=== PATIENT | female | born 1965 | race American Indian/Alaskan Native ===

== ENCOUNTER 2018-11-07 12:26 | Emergency (ER) | payer OTHER, SELFPAY ==
--- NOTE | 2018-11-07 12:56 | Emergency Department Report ---
Chief Complaint: Dizziness Stated Complaint: EPISODES VERTIGO/VOMIT Time Seen by Provider: 11/07/18 12:53 - HPI History of Present Illness: This is a 53 y.o. F that presents to the ER with vertigo and vomiting since 1000. PMH: Vertigo, HTN, migraine, seizures, and CVA Patient took meclizine [employer], symptoms worse. - Exam Vital Signs: Vital Signs 11/07/18 12:54 Temperature 98.7 F Pulse Rate 85 Respiratory 16 Rate Blood Pressure 125/80 [Right] O2 Sat by Pulse 100 Oximetry MSE screening note: Focused history and physical exam performed. Due to findings the following was ordered: Given zofran odt 4 mg po ED Disposition for MSE Condition: Stable
[2018-11-07] MEDS ORDERED: ZOFRAN ODT PO ONE ×2 (12:57→14:06)
[2018-11-07] MEDS ORDERED: ZOFRAN ODT ONE (12:59)
[2018-11-07] MEDS ORDERED: BENADRYL PO ONE (14:06)
[2018-11-07] MEDS ORDERED: ANTIVERT PO ONE (14:06)
--- NOTE | 2018-11-07 15:27 | Emergency Department Report ---
ED Dizziness HPI - General Chief Complaint: Dizziness Stated Complaint: EPISODES VERTIGO/VOMIT Time Seen by Provider: 11/07/18 12:53 Source: family Mode of arrival: Wheelchair Limitations: No Limitations - History of Present Illness Initial Comments: This is a 53-year-old female with a history of vertigo who presents to ED complaining of dizziness episode that started today with some nausea. Patient states that she's been under a lot of stress lately is doing with her 2 grandchildren and has not had some rest. Patient thinks this is what may have triggered her vertigo. Patient states that also she had an episode was about 2 years ago. Patient states she had a meclizine tablet at home that she used with no relief. Patient denies headache, trauma or any other injuries. MD Complaint: dizziness - Related Data Home Medications Medication Instructions Recorded Confirmed Last Taken hydroCHLOROthiazide [HCTZ] 25 mg PO QDAY 04/11/14 04/11/14 04/02/14 Previous Rx's Medication Instructions Recorded Last Taken Type Meclizine [Antivert] 25 mg PO Q8H PRN #30 tablet 11/07/18 Unknown Rx Ondansetron [Zofran ODT TAB] 4 mg PO Q6H PRN #30 tab.rapdis 11/07/18 Unknown Rx Allergies Allergy/AdvReac Type Severity Reaction Status Date / Time No Known Allergies Allergy Verified 11/07/18 12:28 ED Review of Systems ROS: Stated complaint: EPISODES VERTIGO/VOMIT Other details as noted in HPI Comment: All other systems reviewed and negative ED Past Medical Hx - Past Medical History Hx Hypertension: Yes Hx Congestive Heart Failure: No Hx Diabetes: No Hx Seizures: Yes Hx Asthma: No Hx COPD: No Additional medical history: VERTIGO - Surgical History Additional Surgical History: hysterectomy. Tonsillectomy. Ectopic surgery - Social History Smoking Status: Never Smoker Substance Use Type: None - Medications Home Medications: Home Medications Medication Instructions Recorded Confirmed Last Taken Type hydroCHLOROthiazide [HCTZ] 25 mg PO QDAY 04/11/14 04/11/14 04/02/14 History Meclizine [Antivert] 25 mg PO Q8H PRN #30 tablet 11/07/18 Unknown Rx Ondansetron [Zofran ODT TAB] 4 mg PO Q6H PRN #30 tab.rapdis 11/07/18 Unknown Rx ED Physical Exam - General Limitations: No Limitations General appearance: alert, in no apparent distress - Head Head exam: Present: atraumatic, normocephalic - Eye Eye exam: Present: normal appearance - ENT ENT exam: Present: mucous membranes moist - Neck Neck exam: Present: normal inspection - Respiratory Respiratory exam: Present: normal lung sounds bilaterally. Absent: respiratory distress - Cardiovascular Cardiovascular Exam: Present: regular rate, normal rhythm. Absent: systolic murmur, diastolic murmur, rubs, gallop - GI/Abdominal GI/Abdominal exam: Present: soft, normal bowel sounds - Extremities Exam Extremities exam: Present: normal inspection - Back Exam Back exam: Present: normal inspection - Neurological Exam Neurological exam: Present: alert, oriented X3, CN II-XII intact, normal gait - Expanded Neurological Exam Expanded Patient oriented to: Present: person, place, time Speech: Present: fluid speech Cranial nerves: Facial Sensation: Normal Cerebellar function: Finger to Nose: Normal Motor strength exam: RUE: 5, LUE: 5, RLE: 5, LLE: 5 Best Eye Response ([place]): (4) open spontaneously Best Motor Response ([place]): (6) obeys commands Best Verbal Response ([place]): (5) oriented [place] Total: 15 - Psychiatric Psychiatric exam: Present: normal affect, normal mood - Skin Skin exam: Present: warm, dry, intact, normal color. Absent: rash ED Course Vital Signs 11/07/18 12:54 Temperature 98.7 F Pulse Rate 85 Respiratory 16 Rate Blood Pressure 125/80 [Right] O2 Sat by Pulse 100 Oximetry - Reevaluation(s) Reevaluation #1: Hightower is sitting in a wheelchair constantly. She states she feels better. Patient has no neurological deficit. He is speaking in clear sentences. 11/07/18 15:29 ED Medical Decision Making - Medical Decision Making 53-year-old female presents with an onset episode of vertigo Patient received Zofran and meclizine in the ED today. Patient reports to feeling much better upon reevaluation. Discussed the patient to go home and rest and take it easy for the rest of the day. Discussedradius activities for due to. Discussed important and increase hydration Discussed follow-up with primary care physician. Critical care attestation.: If time is entered above; I have spent that time in minutes in the direct care of this critically ill patient, excluding procedure time. ED Disposition Clinical Impression: Vertigo, central, Nausea Disposition: DC-01 TO HOME OR SELFCARE Is pt being admited?: No Does the pt Need Aspirin: No Condition: Stable Instructions: Dizziness (ED), Vertigo (ED) Additional Instructions: Make sure to follow up with the primary care physician as discussed. Take all your medications as you've been prescribed. If you have any worsening symptoms or develop new symptoms please return to ED immediately. Prescriptions: Meclizine [Antivert] 25 mg PO Q8H PRN #30 tablet PRN Reason: Vertigo Ondansetron [Zofran ODT TAB] 4 mg PO Q6H PRN #30 tab.rapdis PRN Reason: Nausea Referrals: MAIDA BAUMANN MD [Staff Physician] - 3-5 Days [facility] [Provider Group] - 3-5 Days Forms: Accompanied Note, Work/School Release Form(ED) Time of Disposition: 15:34
[2018-11-07 16:24] VITALS: BP 121/78
== END 2018-11-07 16:19 | disposition home or self-care (01) ==
LOC: ED 12:26
DX: R42 Dizziness and giddiness (principal); R11.0 Nausea; I10 Essential (primary) hypertension
CPT/HCPCS: 99282; Q0162